=== PATIENT | female | born 1970 | race Caucasian/White ===

== ENCOUNTER → 2020-08-04 | Day surgery (SDC) | payer OTHER | END | disposition home or self-care (01) | LOC: FRADUS-SUR 14:50 | PROVIDERS: ATTEND Surgery Surgical Oncology | PROC: 0HBT3ZX Excision of Right Breast, Percutaneous Approach, Diagnostic (ICD-10-PCS; principal; 2020-08-04) | DX: C50.811 Malignant neoplasm of overlapping sites of right female breast (principal); N63.10 Unspecified lump in the right breast, unspecified quadrant | CPT/HCPCS: 19083; 77065-TC; 87899; 88305-TC; 88342-TC; A4648 ==